=== PATIENT | male | born 1990 | race Caucasian/White ===

== ENCOUNTER 2016-05-17 18:03 | Observation (INO) | payer OTHER ==
[2016-05-17] MEDS ORDERED: ASPIRIN 81 MG CHEW PO STA (18:15)
[2016-05-17] MEDS ORDERED: SODIUM CHLORIDE 0.9% 500 ML IV STA (18:15)
--- NOTE | 2016-05-17 18:18 | ED ---
Chest Pain HPI - General Chief Complaint: Chest Pain Stated Complaint: chest pain Time Seen by Provider: 05/17/16 18:05 Source: patient, RN notes reviewed Mode of arrival: EMS - History of Present Illness Initial Comments: 25-year-old male presents to emergency department chief complaint of chest pain. Patient has a history of having syncopal episodes in the past. Patient' s history of having chest pain on and off over the last 6 months or so. Today she developed the chest pain and he became lightheaded like he might pass out. Patient states it is stabbing pain to the left of the chest that radiated all the way down the left arm. Patient states the EMS was called they gave him 2 nitro's and now he is pain-free. Patient has a transverse linear nausea with this. Patient states he did take 2 baby aspirin when the pain started. Patient does admit to a extensive family history of heart attacks at the age of 30s to 40s. Patient states that he was concerned due to this pain and discomfort so he thought that he should be evaluated. Patient denies other symptoms at this time. Patient denies any recent fever, chills, shortness of breath, back pain, abdominal pain, nausea vomiting, numbness or tingling, dysuria or hematuria, constipation or diarrhea, headaches or visual changes, or any other current symptoms. - Related Data Home Medications Medication Instructions Recorded Confirmed No Known Home Medications [No 05/17/16 05/17/16 Known Home Medications] Allergies Allergy/AdvReac Type Severity Reaction Status Date / Time No Known Allergies Allergy Verified 05/17/16 18:54 Review of Systems ROS Statement: Those systems with pertinent positive or pertinent negative responses have been documented in the HPI. ROS Other: All systems not noted in ROS Statement are negative. EKG Findings - EKG Comments: EKG Findings:: normal sinus rhythm 78 bpm, normal axis, no atopy, no S-T depressions or elevations, Past Medical History Past Medical History: No Reported History Additional Past Medical History / Comment(s): SYNCOPAL EPISODE- [facility] 2009 History of Any Multi-Drug Resistant Organisms: None Reported Additional Past Surgical History / Comment(s): WISDOM TEETH REMOVED Past Psychological History: PTSD Smoking Status: Never smoker Past Alcohol Use History: Occasional Past Drug Use History: None Reported General Exam - General Exam Comments Initial Comments: General: The patient is awake and alert, in no distress, and does not appear acutely ill. Eye: Pupils are equal, round and reactive to light, extra-ocular movements are intact; there is normal conjunctiva bilaterally. No signs of icterus. Ears, nose, mouth and throat: There are moist mucous membranes and no oral lesions. Neck: The neck is supple, there is no tenderness. Cardiovascular: There is a regular rate and rhythm. No murmur, rub or gallop is appreciated. Respiratory: Lungs are clear to auscultation, respirations are non-labored, breath sounds are equal. No wheezes, stridor, rales, or rhonchi. Gastrointestinal: Soft, non-distended, non-tender abdomen without masses or organomegaly noted. There is no rebound or guarding present. No CVA tenderness. Bowel sounds are unremarkable. Back: There is no tenderness to palpation in the midline. There is no obvious deformity. No rashes noted. Musculoskeletal: Normal ROM, no tenderness, There is no pedal edema. There is no calf tenderness or swelling. Sensation intact. Pulses equal bilaterally 2+. Neurological: CN II-XII intact, There are no obvious motor or sensory deficits. Coordination appears grossly intact. Speech is normal. Skin: Skin is warm and dry and no rashes or lesions are noted. Psychiatric: Cooperative, appropriate mood & affect, normal judgment. Course Vital Signs 05/17/16 05/17/16 18:07 18:52 Temperature 100.0 F H Pulse Rate 73 66 Respiratory 18 18 Rate Blood Pressure 118/61 114/66 O2 Sat by Pulse 95 96 Oximetry Chest Pain MDM - MDM 25 yo male presents to the ER with cc of left-sided chest pain. Patient's pain did improve with nitro. Patient's EKG at this time is negative. Patient has no pain on evaluation. At this time patient's lab work initially is reviewed and negative. At this time chest x-ray does not show any acute process. The patient for cardiac rule out due to the family history of early cardiac disease as well as the improvement in patient's pain with nitro. The patient is in agreement of this plan all questions have been answered. They will be discharged home. Disposition Clinical Impression: Unstable angina Disposition: ADMITTED IP TO THIS HOSP Condition: Stable Time of Disposition: 19:36 Decision Date: 05/17/16 Decision Time: 19:36
[2016-05-17 19:04] LABS: Basophils % (A) 1 %; CH 32.7; CHCM 37.3; Eosinophils # (A) 0.1 k/uL (0-0.7); Eosinophils % (A) 1 %; HCT 44.5 % (39.0-53.0); HDW 2.86; HGB 15.9 gm/dL (13.0-17.5); Luc # (Auto) 0.16; Luc % (Auto) 2; Lymphocytes # (A) 1.8 k/uL (1.0-4.8); Lymphocytes % (A) 21 %; MCH 31.5 pg (25.0-35.0); MCHC 35.8 g/dL (31.0-37.0); MCV 87.9 fL (80.0-100.0); Mean Platelet Volume 7.1; Monocytes # (A) 0.5 k/uL (0-1.0); Monocytes % (A) 6 %; Neutrophils % (A) 70 %; RBC 5.06 m/uL (4.30-5.90); RDW 12.8 % (11.5-15.5); WBC 8.5 k/uL (3.8-10.6); WBC (Perox) 8.62
[2016-05-17 19:09] LABS: INR 1.1 (<1.1)
[2016-05-17 19:14] LABS: ALT 73 U/L (21-72); AST 41 U/L (17-59); Alkaline Phosphatase 71 U/L (38-126); Anion Gap 12 mmol/L; Blood Urea Nitrogen 11 mg/dL (9-20); Calcium 9.4 mg/dL (8.4-10.2); Carbon Dioxide 22 mmol/L (22-30); Chloride 108 mmol/L (98-107); Glucose 96 mg/dL (74-99); Magnesium 1.9 mg/dL (1.6-2.3); Non-African American GFR(MDRD) >60 (>60 ml/min/1.73 sqM); Potassium 3.9 mmol/L (3.5-5.1); Sodium 142 mmol/L (137-145); Total Bilirubin 1.2 mg/dL (0.2-1.3); Total Protein 7.4 g/dL (6.3-8.2)
[2016-05-17 19:19] LABS: Creatine Kinase 185 U/L (55-170)
[2016-05-17 19:31] LABS: Creatine Kinase MB 1.6 ng/mL (0.0-2.4); Troponin I <0.012 ng/mL (0.000-0.034)
[2016-05-17] MEDS ORDERED: NITROGLYCERIN SL TABS 0.4 MG TAB SUBLINGUAL PRN (19:37)
[2016-05-17] MEDS ORDERED: HEPARIN SODIUM,PORCINE 5,000 UNIT/ML 1 ML VIAL IV ONE (19:37)
--- NOTE | 2016-05-17 19:40 | XR ---
EXAMINATION TYPE: XR chest 2V DATE OF EXAM: 05/17/2016 7:09 PM COMPARISON: NONE HISTORY: Chest pain TECHNIQUE: Frontal and lateral views of the chest are obtained. FINDINGS: Heart and mediastinum are normal. Lungs are clear. Diaphragm is normal. Bony thorax is int act. IMPRESSION: Normal chest
[2016-05-17] MEDS ORDERED: SODIUM CHLORIDE 0.9% 1,000 ML IV SCH (19:45)
[2016-05-17] MEDS ORDERED: HEPARIN SODIUM,PORCINE/D5W PMX 25,000 UNIT in DEXTROSE/WATER 1 500ML.BAG IV SCH (19:45)
[2016-05-17 20:38] VITALS: RESP 16
[2016-05-17] MEDS ORDERED: HEPARIN SODIUM,PORCINE 5,000 UNIT/ML 1 ML VIAL IV PRN (22:04)
[2016-05-18] MEDS: NITROGLYCERIN OINT 1 INCH/GM PACKET TOPICAL SCH ×2 (01:21→06:18)
[2016-05-18 02:32] LABS: Creatine Kinase 140 U/L (55-170)
[2016-05-18 02:45] LABS: Creatine Kinase MB 1.3 ng/mL (0.0-2.4); Troponin I <0.012 ng/mL (0.000-0.034)
[2016-05-18 08:32] LABS: Cholesterol 165 mg/dL (<200); HDL Cholesterol 35 mg/dL (40-60); Triglycerides 205 mg/dL (<150)
[2016-05-18 08:55] LABS: Creatine Kinase 134 U/L (55-170)
[2016-05-18] MEDS ORDERED: ASPIRIN 325 MG TAB PO SCH (09:00)
[2016-05-18 09:06] LABS: Creatine Kinase MB 1.3 ng/mL (0.0-2.4); Troponin I <0.012 ng/mL (0.000-0.034)
--- NOTE | 2016-05-18 11:28 | CONS ---
DATE OF CONSULTATION: Mr. Covarrubias is a 25-year-old male who does not follow with primary care physician, who presented with symptoms of chest discomfort and dizziness. He was in the kitchen yesterday when he felt somewhat dizzy and had some discomfort in the chest and because of that, came into the emergency room. He is usually active physically. He goes to the gym on a regular basis, has no exertional chest discomfort. He denies any significant dyspnea on exertion. He has occasional palpitations and some dizziness. At that time, he has no PND, orthopnea, or peripheral edema. While in the about 4 years ago, he had an episode of palpitation. Apparently had a brief episode of syncope shortly after and he has recurrence about a year or so after and he was told he may have some cardiac issue, although no cardiac workup was done. His coronary risk factors are remarkable for strong family history of coronary artery disease in his father's side of the family, but he has no history of hypertension, hyperlipidemia, diabetes or smoking. REVIEW OF SYSTEMS: RESPIRATORY SYSTEM: No recent wheezing. No cough. No history of obstructive lung disease. GI SYSTEM: No recent GI bleeding. No peptic ulcer disease. SYSTEM: No dysuria or hematuria. NERVOUS SYSTEM: No stroke or seizure. PHYSICAL EXAMINATION: A 25-year-old male, alert, oriented, in no apparent distress. Blood pressure 108/60 with the heart rate in the 60s. HEAD: Normocephalic. EYES: Sclerae anicteric. NECK: Good upstroke. No bruit. No jugular to auscultation. LUNGS: Clear to auscultation. HEART: Regular rate and rhythm. S1, S2, no S3, no S4. No murmur or rub. ABDOMEN: Soft, nontender, positive bowel sounds. No organomegaly. EXTREMITIES: No edema. Intact distal pulses. Lab data revealed troponin less than 0.012. BUN and creatinine 11 and 0.9. Potassium 3.9. Hemoglobin of 15.9. EKG sinus mechanism, normal axis and intervals. Normal electrocardiogram. IMPRESSION: 1. Chest discomfort with palpitations of unclear etiology, atypical for ischemic heart disease. 2. Family history of coronary artery disease. RECOMMENDATIONS: I will stop his nitrate and his heparin. I will proceed with stress echocardiogram and transthoracic echo. If there is no evidence of significant abnormality and the patient has persistent symptoms, then a watermaster monitoring may be helpful to rule out any supraventricular tachycardia. Thank you for this consult. We will follow with you.
--- NOTE | 2016-05-18 12:54 | ECHOF ---
Referral Reason:cp MEASUREMENTS -------- HEIGHT: 157.5 cm WEIGHT: 95.3 kg BP: IVSd: 1.2 cm (0.6 - 1.1) LVIDd: 3.9 cm (3.9 - 5.3) LVPWd: 1.1 cm (0.6 - 1.1) IVSs: 1.7 cm LVIDs: 2.9 cm LVPWs: 1.3 cm LA Diam: 3.0 cm (2.7 - 3.8) LAESV Index (A-L): 20.25 ml/m Ao Diam: 3.3 cm (2.0 - 3.7) AV Cusp: 1.9 cm (1.5 - 2.6) LA Diam: 4.0 cm (2.7 - 3.8) MV EXCURSION: 26.725 mm (> 18.000) MV EF SLOPE: 123 mm/s (70 - 150) EPSS: 0.3 cm MV E Harshad: 1.01 m/s MV DecT: 244 ms MV A Harshad: 0.78 m/s MV E/A Ratio: 1.28 RAP: 5.00 mmHg RVSP: 15.61 mmHg FINDINGS -------- Sinus rhythm. This was a technically adequate study. There is mild concentric left ventricular hypertrophy. Overall left ventricular systolic function is normal with, an EF between 55 - 60 %. The right ventricle is normal in size. Normal LA size by volume 22+/-6 ml/m2. The right atrial size is normal. There is mild aortic valve sclerosis. There is no evidence of aortic regurgitation. Mild mitral annular calcification present. Mild mitral regurgitation is present. Mild tricuspid regurgitation present. There is no evidence of pulmonary hypertension. The right ventricular systolic pressure, as measured by Doppler, is 15.61mmHg. There is no pulmonic regurgitation present. The aortic root size is normal. There is no pericardial effusion. CONCLUSIONS -------- 1. There is mild concentric left ventricular hypertrophy. 2. Overall left ventricular systolic function is normal with, an EF between 55 - 60 %. 3. There is mild aortic valve sclerosis. 4. Mild mitral annular calcification present. 5. Mild mitral regurgitation is present. 6. Mild tricuspid regurgitation present. 7. There is no evidence of pulmonary hypertension. 8. The right ventricular systolic pressure, as measured by Doppler, is 15.61mmHg. EARTH MOVING MACHINE OPERATOR: Polina Weston RDCS
[2016-05-18 16:12] VITALS: BP 120/69; PULSE 78; TEMP 98.1
--- NOTE | 2016-05-19 08:13 | HP ---
DATE OF ADMISSION: HISTORY AND PHYSICAL AND DISCHARGE SUMMARY REASON FOR ADMISSION: Chest pain. HISTORY OF PRESENTING ILLNESS: This is a 25-year-old gentleman who was previously healthy, was an active marine until a couple of years ago, comes to the hospital with sudden onset of chest pain. Patient's significant other was at bedside. stated that patient apparently called her. He complained of chest pain and she had some difficulty understanding some of his words. Patient apparently was brought to the hospital via EMS as patient was so debilitated. In the emergency room, EKG did not reveal ST-T wave changes. No rhythm abnormalities were appreciated. Patient does have some symptoms of PTSD apparently and has seen a psychiatrist in the past. States that his reproducibility of symptoms are not similar and does not think there was any triggers at the time of onset of this episode. Patient does have chest pains in the past and has attributed them to musculoskeletal in etiology as patient has a vigorous workout regimen. During my evaluation, the patient denies having any headaches, no blurry vision, nausea, vomiting, diarrhea, urinary urgency or frequency, or chest pain. Past medical history includes some remote history of tachyarrhythmia. SURGICAL HISTORY: None. SOCIAL HISTORY: Denies illicit drug use, alcohol use or tobacco use. Currently lives with his . Works with the police department. FAMILY HISTORY: Premature heart disease is reported. MEDICATIONS: None. PHYSICAL EXAM: VITALS: Temperature 98.1, heart rate 78, respiratory rate 16, blood pressure 120/69; saturating 95% on room air. GENERALLY: Patient appears to be alert, oriented x3. HEENT: The pupils are equal and reactive to light and accommodation. HEART: S1, S2 present. No murmur appreciated. LUNGS: Good air entry. No wheezing or rhonchi noted. ABDOMINAL EXAM: Soft, nontender, no organomegaly appreciated. GENITOURINARY: No Walton in place. EXTREMITIES: Pulses can be palpated distally. Denies any tenderness on gross palpation. SKIN: On a gross skin exam does not appear to have any purpura or any skin rashes that were noted. NEUROLOGICALLY: Grossly cranial nerves 2-12 intact. No motor or sensory deficits noted. Laboratory data includes hemoglobin 15.9, hematocrit 44.5, platelets 257, white count 8.5. Sodium 142, potassium 3.9, chloride 108, bicarb is 22, BUN 11, creatinine 0.90. Troponins x3 were negative. ASSESSMENT AND PLAN: 1. Atypical chest pain. Echocardiogram was reviewed. ACS is ruled out. A stress test is verbally reported to be negative. 2. History of posttraumatic stress disorder. PLAN: I did discuss with the patient that the stress test appears to be negative. Patient does have some remote history of tachyarrhythmia. He should follow up with Dr. Sampson. If that appears to be the underlying etiology of his above described event, patient would benefit from an event monitor. Thereafter further consideration into his evaluation for PTSD versus even a panic episode should be considered. This was discussed with the patient and his , who agreed with the plan. Patient is thereafter discharged home in a stable condition.
--- NOTE | 2016-05-19 10:30 | ECHOS ---
DATE OF SERVICE: 05/19/2016 AGE: 25Y SEX: M HT: 71" WT: 240 lbs. Protocol Osman: Others: Stage: Dur. of Exercise: 11:13 minutes *Heart Rate Blood Pressure *Rest: 85 Rest: 119/67 * *Max. Achieved: 179 Maximum BP: 212/62 85% PMHR: 164 100% PMHR: 193 *METS: 11.2 INDICATIONS: Chest pain. MEDICATIONS: None. The patient was exercised for a total period of 11 minutes. A peak heart rate of 179 was achieved. Maximum blood pressure of 212/62 millimeters of mercury was noted. Resting EKG shows normal sinus rhythm with normal RI interval and QRS duration and normal ST-T waves. No ST segment depression suggestive of ischemia was noted. Baseline echocardiographic images reveals a normal left ventricular chamber size with normal left ventricular systolic function. In the immediate postexercise period, normal increase in the wall thickness and contractility is noted. FINAL IMPRESSION: This stress echocardiographic study is negative for stress-induced ischemia. EKG portion of the stress test is not suggestive of ischemia. Patient's exercise tolerance is normal.
== END 2016-05-18 16:49 | disposition home or self-care (01) ==
LOC: EC 18:03 → 3OBS 19:37
PROVIDERS: ADMIT Hospitalist; ATTEND Hospitalist
DX: R07.89 Other chest pain (principal); R42 Dizziness and giddiness; R00.2 Palpitations; R11.0 Nausea; Z82.49 Family history of ischemic heart disease and other diseases of the circulatory system; F43.10 Post-traumatic stress disorder, unspecified
CPT/HCPCS: 96376; 96361; 99285; 36415; 93005; 93017; 93306; 93350; 80061; 80053; 82550 ×2; 82553 ×2; 83735; 84484 ×2; 85025; 85610; 85730 ×2; 71020; G0378 ×2; J1644 ×3; 96365; 96366